=== PATIENT | male | born 1960 | race Caucasian/White ===

== ENCOUNTER 2025-03-15 11:29 | Inpatient (IN) | payer OTHER ==
[~2025-03-15] VITALS: Ht 187.9 cm; Wt 154.2 kg
[2025-03-15] VITALS (13 sets, daily range): BP systolic 85–172; BP diastolic 32–86
[~2025-03-15 11:29] MED LIST: CLARITIN10 MG PO; HYDROCODONE-AC1 EAC2 PO; LEVOTHYROXINE25 MCG PO; LIPITOR40 MG PO; OMEGA 3 1,0001 EACH PO; VITAL-D RX TAB1 EACH PO; VITAMIN C1000 M5 PO; VITAMIN D31250 MCG PO
[2025-03-15 11:53] LABS: ABG BASE EXCESS 10.3 mmol/L (-2.0-3.0); ARTERIAL BLOOD GAS PH 7.152 (7.350-7.450); ARTERIAL BLOOD GAS PO2 39.6 mmHg (83.0-108.0)
[2025-03-15 11:53] LABS: HEMATOCRIT 36.9 % (42.0-52.0); MEAN CELL VOLUME 109.5 fl (80.0-94.0); MEAN CORPUSCULAR HGB 33.8 pg (27.0-31.0); MEAN CORPUSCULAR HGB CONC 30.9 g/dl (33.0-37.0); MEAN PLATELET VOLUME 10.4 fl (9.6-12.3); PLATELET COUNT AUTOMATED 135 10*3/uL (130-400); RED BLOOD COUNT 3.37 10*6/uL (4.50-5.90); RED CELL DISTRI WIDTH 13.7 % (0-14.5); WHITE BLOOD COUNT 6.2 10*3/uL (4.8-10.8)
[2025-03-15 12:11] LABS: ALKALINE PHOSPHATASE 44 U/L (46-116); BUN 15 mg/dl (9-23); CHLORIDE 96 mmol/L (98-107); POTASSIUM 3.8 mmol/L (3.4-5.1); SGPT/ALT 29 U/L (5-49); TOTAL PROTEIN 6.2 gm/dL (6.0-8.0)
[2025-03-15 12:16] LABS: ACT PARTIAL THROMBO TIME 32.5 SECONDS (20.0-32.1)
[2025-03-15] MEDS ORDERED: Piperacillin Sodium/Tazobact 50 ML IV ONE (12:25)
[2025-03-15] MEDS ORDERED: LACTULOSE 20 GM/30 ML UDC R ONE (12:25)
[2025-03-15] MEDS ORDERED: Vancomycin Hydrochloride 250 ML IV ONE (12:25)
[2025-03-15 12:28] LABS: ETHYL ALCOHOL < 3.0 mg/dl (<3)
[2025-03-15 12:31] LABS: MANUAL DIFF REFLEX YES
[2025-03-15 12:38] LABS: BILIRUBIN Negative (Negative); BLOOD Negative (Negative); CLARITY Clear (Clear); COLOR Yellow (Yellow); GLUCOSE Negative (Negative); KETONE Negative (Negative); LEUKO ESTERASE Negative (Negative); NITRITE Negative (Negative); PH 5.5 (4.5-8.0)
[2025-03-15 12:39] LABS: PLATELET SUFFICIENCY NORMAL (NORMAL); POLYCHROMASIA SLIGHT; TOTAL CELLS COUNTED 100 #CELLS
[2025-03-15 12:57] LABS: MUCOUS 1+; WBC 0-2 wbc/hpf (0-5)
[2025-03-15 13:02] LABS: URINE AMPHETAMINES Negative (1000ng/ml); URINE BARBITURATES Negative (200ng/ml); URINE BENZODIAZEPINES Negative (200ng/ml); URINE CANNABINOIDS (THC) Negative (50ng/ml); URINE COCAINE Negative (300ng/ml); URINE METHADONE Negative (300ng/ml); URINE OPIATES Negative (300ng/ml); URINE PHENCYCLIDINE Negative (25ng/ml)
[2025-03-15 13:10] LABS: FREE T4 0.16 ng/dl (0.89-1.76)
[2025-03-15 13:46] LABS: ABG O2 SATURATION 98.1 % (94.0-98.0); ARTERIAL BLOOD GAS PO2 147.3 mmHg (83.0-108.0)
[2025-03-15 13:50] LABS: ABG BASE EXCESS 10.4 mmol/L (-2.0-3.0); ARTERIAL BLOOD GAS PH 7.106 (7.350-7.450)
[2025-03-15] MEDS ORDERED: PROPOFOL 50 ML IV SCH (13:55)
[2025-03-15] MEDS ORDERED: ETOMIDATE 20 MG/10 ML VIAL IV ONE (13:55)
[2025-03-15] MEDS ORDERED: ROCURONIUM BROMIDE 50 MG/5 ML SYRINGE IV ONE (14:05)
[2025-03-15] MEDS ORDERED: LACTULOSE 20 GM/30 ML UDC PO ONE (14:15)
[2025-03-15] MEDS ORDERED: FUROSEMIDE 40 MG/4 ML VIAL IV ONE (14:20)
[2025-03-15] MEDS ORDERED: PROPOFOL 100 ML IV ONE (14:35)
[2025-03-15] MEDS ORDERED: SODIUM CHLORIDE 0.9% 1,000 ML IV ONE (14:40)
[2025-03-15] MEDS ORDERED: Albuterol Sulfate 2.5 MG/3 ML VIAL NEB SCH (15:09)
[2025-03-15] MEDS ORDERED: Midazolam Hydrochloride 5 MG/5 ML VIAL IV PRN (15:10)
[2025-03-15] MEDS ORDERED: BISACODYL 10 MG SUPP R PRN (15:20)
[2025-03-15] MEDS ORDERED: ACETAMINOPHEN 325 MG TAB PO PRN (15:20)
[2025-03-15] MEDS ORDERED: BISACODYL 5 MG TAB PO PRN (15:20)
[2025-03-15] MEDS ORDERED: Magnesium Hydroxide 30 ML UDC PO PRN (15:20)
[2025-03-15] MEDS ORDERED: ACETAMINOPHEN 650 MG SUPP R PRN (15:20)
[2025-03-15] MEDS ORDERED: MORPHINE Sulfate 2 MG/ML SYR IV PRN (15:20)
[2025-03-15] MEDS ORDERED: Acetaminophen/Hydrocodone 5 MG/325 MG TABLET PO PRN (15:20)
[2025-03-15] MEDS ORDERED: Enoxaparin Sodium 40 MG/0.4 ML SYR SC ONE (15:35)
[2025-03-15] MEDS ORDERED: Doxycycline Hyclate 100 MG in SODIUM CHLORIDE 0.9% 250 ML IV SCH (16:00)
[2025-03-15 16:53] LABS: ARTERIAL BLOOD GAS PH 7.499 (7.350-7.450); ARTERIAL BLOOD GAS PO2 62.6 mmHg (83.0-108.0)
[2025-03-15 16:54] LABS: ABG BASE EXCESS 11.3 mmol/L (-2.0-3.0)
[2025-03-15] MEDS ORDERED: hydrALAZINE hydrochloride 20 MG/ML VIAL IV PRN (17:25)
[2025-03-15] MEDS ORDERED: Piperacillin Sodium/Tazobact 50 ML IV SCH (18:00)
[2025-03-16 04:00] VITALS: BP 115/60
[2025-03-16 05:12] LABS: ALKALINE PHOSPHATASE 37 U/L (46-116); BUN 17 mg/dl (9-23); CHLORIDE 98 mmol/L (98-107); CHOLESTEROL 125 mg/dL (<200); LDL CHOLESTEROL 64 mg/dL (9-159); POTASSIUM 3.7 mmol/L (3.4-5.1); SGPT/ALT 23 U/L (5-49); TOTAL PROTEIN 5.4 gm/dL (6.0-8.0); TRIGLYCERIDES 104 mg/dl (<150)
[2025-03-16 05:25] LABS: VITAMIN D, 25-HYDROXY 23.1 ng/mL (30-100)
[2025-03-16] MEDS ORDERED: Levothyroxine Sodium 100 MCG VIAL IV SCH (06:00)
[2025-03-16] MEDS ORDERED: Pantoprazole Sodium 40 MG VIAL IV SCH (06:00)
[2025-03-16 06:11] LABS: BASO % 0.2 % (0.0-1.0); EOS # 0.1 10*3/uL (0.0-0.4); EOS % 2.7 % (1.0-4.0); HEMATOCRIT 30.2 % (42.0-52.0); MEAN CORPUSCULAR HGB 33.7 pg (27.0-31.0); MEAN CORPUSCULAR HGB CONC 31.8 g/dl (33.0-37.0); MEAN PLATELET VOLUME 11.3 fl (9.6-12.3); MONO # 0.6 10*3/uL (0.1-1.0); MONO % 12.7 % (3.0-9.0); NEUT # 3.5 10*3/uL (2.3-7.9); NEUT % 73.2 % (47.0-73.0); PLATELET COUNT AUTOMATED 128 10*3/uL (130-400); RED BLOOD COUNT 2.85 10*6/uL (4.50-5.90); RED CELL DISTRI WIDTH 13.7 % (0-14.5); WHITE BLOOD COUNT 4.7 10*3/uL (4.8-10.8)
[2025-03-16 07:00] LABS: POLYCHROMASIA SLIGHT; TOTAL CELLS COUNTED 100 #CELLS
[2025-03-16 07:01] LABS: PLATELET SUFFICIENCY LOW (NORMAL)
[2025-03-16 07:51] LABS: ABG O2 SATURATION 95.1 % (94.0-98.0); ARTERIAL BLOOD GAS PH 7.472 (7.350-7.450); ARTERIAL BLOOD GAS PO2 72.1 mmHg (83.0-108.0)
[2025-03-16 07:57] LABS: ABG BASE EXCESS 12.3 mmol/L (-2.0-3.0)
[2025-03-16 08:00] VITALS: BP 109/54
[2025-03-16] MEDS ORDERED: ROCURONIUM BROMIDE 100 MG/10 ML VIAL IV ONE (08:41)
[2025-03-16] MEDS ORDERED: ETOMIDATE 20 MG/10 ML VIAL IV ONE (08:41)
[2025-03-16] MEDS ORDERED: Enoxaparin Sodium 40 MG/0.4 ML SYR SC SCH (10:00)
[2025-03-16] MEDS ORDERED: Cholecalciferol 5,000 IU CAP (125 MCG) PO SCH (10:00)
[2025-03-16] MEDS ORDERED: ASCORBIC ACID 500 MG TAB PO SCH (10:00)
[2025-03-16] MEDS ORDERED: FUROSEMIDE 40 MG/4 ML VIAL IV ONE (11:05)
[2025-03-16 12:00] VITALS: BP 117/57
[2025-03-16] MEDS ORDERED: fentaNYL CITRATE 1,000 MCG in SODIUM CHLORIDE 0.9% 230 ML IV SCH (14:45)
[2025-03-16 16:00] VITALS: BP 111/44
[2025-03-16] MEDS ORDERED: AMMONIUM LACTATE 12% LOTION T SCH (18:00)
[2025-03-16 20:00] VITALS: BP 119/50
[2025-03-17] VITALS: BP 92/50
[2025-03-17 04:00] VITALS: BP 111/57
[2025-03-17 05:42] LABS: FREE T4 0.25 ng/dl (0.89-1.76)
[2025-03-17] MEDS ORDERED: fentaNYL CITRATE 100 MCG/2 ML VIAL ONE (05:58)
[2025-03-17 07:23] LABS: ARTERIAL BLOOD GAS PH 7.415 (7.350-7.450); ARTERIAL BLOOD GAS PO2 76.1 mmHg (83.0-108.0)
[2025-03-17 07:25] LABS: BASO % 0.5 % (0.0-1.0); EOS # 0.1 10*3/uL (0.0-0.4); EOS % 3.5 % (1.0-4.0); HEMATOCRIT 29.6 % (42.0-52.0); MEAN CELL VOLUME 105.3 fl (80.0-94.0); MEAN CORPUSCULAR HGB 33.5 pg (27.0-31.0); MEAN CORPUSCULAR HGB CONC 31.8 g/dl (33.0-37.0); MONO # 0.4 10*3/uL (0.1-1.0); MONO % 9.7 % (3.0-9.0); NEUT # 2.5 10*3/uL (2.3-7.9); NEUT % 67.9 % (47.0-73.0); PLATELET COUNT AUTOMATED 130 10*3/uL (130-400); RED BLOOD COUNT 2.81 10*6/uL (4.50-5.90); RED CELL DISTRI WIDTH 14.2 % (0-14.5); WHITE BLOOD COUNT 3.7 10*3/uL (4.8-10.8)
[2025-03-17 07:25] LABS: ABG BASE EXCESS 10.7 mmol/L (-2.0-3.0)
[2025-03-17 07:41] LABS: POTASSIUM 3.5 mmol/L (3.4-5.1); TOTAL PROTEIN 5.7 gm/dL (6.0-8.0)
[2025-03-17 08:00] VITALS: BP 113/56
[2025-03-17] MEDS ORDERED: SODIUM CHLORIDE 0.9% 100 ML BAG IV ONE (09:34)
[2025-03-17] MEDS ORDERED: SODIUM CHLORIDE 0.9% 250 ML BAG IV ONE (09:34)
[2025-03-17] MEDS ORDERED: FUROSEMIDE 40 MG/4 ML VIAL IV SCH (10:00)
[2025-03-17] MEDS ORDERED: ASPIRIN ENTERIC COATED 81 MG TAB PO SCH (10:00)
[2025-03-17 12:00] VITALS: BP 114/64
[2025-03-17 12:40] LABS: ABG O2 SATURATION 92.1 % (94.0-98.0); ARTERIAL BLOOD GAS PH 7.44 (7.350-7.450); ARTERIAL BLOOD GAS PO2 63.9 mmHg (83.0-108.0)
[2025-03-17 12:48] LABS: ABG BASE EXCESS 11.6 mmol/L (-2.0-3.0)
[2025-03-17 16:00] VITALS: BP 111/58; BP 127/56; BP 127/58
[2025-03-17 20:00] VITALS: BP 129/58
[2025-03-18] VITALS (12 sets, daily range): BP systolic 106–140; BP diastolic 54–82
[2025-03-18] MEDS ORDERED: fentaNYL CITRATE 1,000 MCG/20 ML VIAL IV ONE (03:25)
[2025-03-18 05:52] LABS: POTASSIUM 3.7 mmol/L (3.4-5.1); TOTAL PROTEIN 5.5 gm/dL (6.0-8.0)
[2025-03-18 06:16] LABS: BASO % 0.9 % (0.0-1.0); EOS # 0.1 10*3/uL (0.0-0.4); EOS % 4.4 % (1.0-4.0); HEMATOCRIT 26.8 % (42.0-52.0); MEAN CELL VOLUME 105.1 fl (80.0-94.0); MEAN CORPUSCULAR HGB 33.7 pg (27.0-31.0); MEAN CORPUSCULAR HGB CONC 32.1 g/dl (33.0-37.0); MEAN PLATELET VOLUME 11.4 fl (9.6-12.3); MONO # 0.4 10*3/uL (0.1-1.0); MONO % 13.4 % (3.0-9.0); NEUT # 1.8 10*3/uL (2.3-7.9); NEUT % 54.8 % (47.0-73.0); PLATELET COUNT AUTOMATED 126 10*3/uL (130-400); RED BLOOD COUNT 2.55 10*6/uL (4.50-5.90); RED CELL DISTRI WIDTH 14.2 % (0-14.5); WHITE BLOOD COUNT 3.2 10*3/uL (4.8-10.8)
[2025-03-18 07:23] LABS: ARTERIAL BLOOD GAS PH 7.45 (7.350-7.450); ARTERIAL BLOOD GAS PO2 60.8 mmHg (83.0-108.0)
[2025-03-18 07:24] LABS: ABG BASE EXCESS 8.8 mmol/L (-2.0-3.0)
[2025-03-18] MEDS ORDERED: FUROSEMIDE 40 MG/4 ML VIAL IV SCH (18:00)
[2025-03-19] VITALS (8 sets, daily range): BP systolic 116–162; BP diastolic 56–82
[2025-03-19 06:20] LABS: HEMATOCRIT 30.6 % (42.0-52.0); MEAN CELL VOLUME 105.5 fl (80.0-94.0); MEAN CORPUSCULAR HGB 33.1 pg (27.0-31.0); MEAN CORPUSCULAR HGB CONC 31.4 g/dl (33.0-37.0); MEAN PLATELET VOLUME 11.4 fl (9.6-12.3); PLATELET COUNT AUTOMATED 122 10*3/uL (130-400); RED CELL DISTRI WIDTH 14.1 % (0-14.5); WHITE BLOOD COUNT 2.8 10*3/uL (4.8-10.8)
[2025-03-19 06:31] LABS: MANUAL DIFF REFLEX YES
[2025-03-19 06:32] LABS: ALKALINE PHOSPHATASE 36 U/L (46-116); BUN 14 mg/dl (9-23); CHLORIDE 92 mmol/L (98-107); POTASSIUM 3.8 mmol/L (3.4-5.1); SGPT/ALT 18 U/L (5-49); TOTAL PROTEIN 6.1 gm/dL (6.0-8.0)
[2025-03-19 08:06] LABS: ABG BASE EXCESS 13.1 mmol/L (-2.0-3.0); ABG O2 SATURATION 88.5 % (94.0-98.0); ARTERIAL BLOOD GAS PH 7.449 (7.350-7.450)
[2025-03-19 08:07] LABS: ARTERIAL BLOOD GAS PO2 51.4 mmHg (83.0-108.0)
[2025-03-19 08:16] LABS: BASOPHILS 2 % (0-1); TOTAL CELLS COUNTED 100 #CELLS
[2025-03-19 08:17] LABS: PLATELET SUFFICIENCY LOW (NORMAL)
[2025-03-19 12:33] LABS: ABG BASE EXCESS 15.1 mmol/L (-2.0-3.0); ABG O2 SATURATION 92.3 % (94.0-98.0); ARTERIAL BLOOD GAS PH 7.467 (7.350-7.450); ARTERIAL BLOOD GAS PO2 57.9 mmHg (83.0-108.0)
[2025-03-19 16:15] LABS: ABG O2 SATURATION 96.1 % (94.0-98.0); ARTERIAL BLOOD GAS PH 7.455 (7.350-7.450); ARTERIAL BLOOD GAS PO2 81.2 mmHg (83.0-108.0)
[2025-03-20] VITALS: BP 164/77
[2025-03-20 04:00] VITALS: BP 158/67
[2025-03-20 05:40] LABS: ALKALINE PHOSPHATASE 41 U/L (46-116); BUN 14 mg/dl (9-23); CHLORIDE 90 mmol/L (98-107); FREE T4 0.24 ng/dl (0.89-1.76); POTASSIUM 3.5 mmol/L (3.4-5.1); SGPT/ALT 19 U/L (5-49); TOTAL PROTEIN 6.5 gm/dL (6.0-8.0)
[2025-03-20 05:56] LABS: HEMATOCRIT 33.5 % (42.0-52.0); MEAN CORPUSCULAR HGB 32.9 pg (27.0-31.0); MEAN CORPUSCULAR HGB CONC 32.2 g/dl (33.0-37.0); MEAN PLATELET VOLUME 11.2 fl (9.6-12.3); PLATELET COUNT AUTOMATED 146 10*3/uL (130-400); RED BLOOD COUNT 3.28 10*6/uL (4.50-5.90); RED CELL DISTRI WIDTH 13.7 % (0-14.5); WHITE BLOOD COUNT 3.8 10*3/uL (4.8-10.8)
[2025-03-20] MEDS ORDERED: Levothyroxine Sodium 100 MCG VIAL IV SCH (06:00)
[2025-03-20 06:27] LABS: MEAN CELL VOLUME 102.1 fl (80.0-94.0)
[2025-03-20 06:32] LABS: MANUAL DIFF REFLEX YES
[2025-03-20 06:38] LABS: BASOPHILS 1 % (0-1); TOTAL CELLS COUNTED 100 #CELLS
[2025-03-20 06:39] LABS: PLATELET SUFFICIENCY NORMAL (NORMAL)
[2025-03-20 08:00] VITALS: BP 156/63
[2025-03-20 08:15] LABS: ARTERIAL BLOOD GAS PH 7.489 (7.350-7.450)
[2025-03-20 08:29] LABS: ABG BASE EXCESS 12.5 mmol/L (-2.0-3.0); ARTERIAL BLOOD GAS PO2 27.8 mmHg (83.0-108.0)
[2025-03-20 08:55] LABS: ABG O2 SATURATION 92.6 % (94.0-98.0); ARTERIAL BLOOD GAS PH 7.487 (7.350-7.450); ARTERIAL BLOOD GAS PO2 61.6 mmHg (83.0-108.0)
[2025-03-20 08:56] LABS: ABG BASE EXCESS 14.1 mmol/L (-2.0-3.0)
[2025-03-20 12:00] VITALS: BP 170/78
[2025-03-20 16:00] VITALS: BP 157/66
[2025-03-20 20:00] VITALS: BP 148/70
[2025-03-21] VITALS: BP 144/68
[2025-03-21 04:00] VITALS: BP 129/64
[2025-03-21 05:19] LABS: POTASSIUM 3.5 mmol/L (3.4-5.1)
[2025-03-21] MEDS ORDERED: Levothyroxine Sodium 100 MCG VIAL IV SCH (06:00)
[2025-03-21 06:05] LABS: BASO % 0.8 % (0.0-1.0); EOS # 0.1 10*3/uL (0.0-0.4); EOS % 2.3 % (1.0-4.0); MEAN CELL VOLUME 101.2 fl (80.0-94.0); MEAN CORPUSCULAR HGB 33.4 pg (27.0-31.0); MEAN PLATELET VOLUME 11.3 fl (9.6-12.3); MONO # 0.5 10*3/uL (0.1-1.0); MONO % 10.2 % (3.0-9.0); NEUT # 2.9 10*3/uL (2.3-7.9); NEUT % 61.9 % (47.0-73.0); NUCLEATED RED BLOOD CELL 0.4 % (0.0-0.0); PLATELET COUNT AUTOMATED 148 10*3/uL (130-400); RED BLOOD COUNT 3.26 10*6/uL (4.50-5.90); RED CELL DISTRI WIDTH 13.8 % (0-14.5); WHITE BLOOD COUNT 4.7 10*3/uL (4.8-10.8)
[2025-03-21 08:00] VITALS: BP 153/81
[2025-03-21 12:00] VITALS: BP 149/72
[2025-03-21] MEDS ORDERED: LASIX40 MG PO (13:19)
[2025-03-21] MEDS ORDERED: VIBRA-TAB100 MG PO (13:19)
[2025-03-21] MEDS ORDERED: ASPIRIN ADULT L81 M2 PO (13:19)
[2025-03-21] MEDS ORDERED: LEVOTHYROXINE200 MC2 PO (13:19)
[2025-03-21] MEDS ORDERED: POTASSIUM CHLO20 ME3 PO (13:19)
[2025-03-21] MEDS ORDERED: AMMONIUM LACTA227 GM T (13:19)
[2025-03-21] MEDS ORDERED: Paliperidone 3 MG TER PO ONE (13:30)
[2025-03-22] MEDS ORDERED: FUROSEMIDE 40 MG TAB PO SCH (10:00)
== END 2025-03-21 15:54 | DRG 133 ==
LOC: ED 11:29 → ICCU 14:47 → EDHOLD 14:47 → ICCU 15:17
PROVIDERS: Internal Medicine; Internal Medicine Cardiovascular Disease; Internal Medicine Critical Care Medicine; Student in an Organized Health Care Education/Training Program; ADMIT Family Medicine; ATTEND Family Medicine
PROC: 0BH17EZ Insertion of Endotracheal Airway into Trachea, Via Natural or Artificial Opening (ICD-10-PCS; principal; 2025-03-15)
PROC: 5A1945Z Respiratory Ventilation, 24-96 Consecutive Hours (ICD-10-PCS; 2025-03-15)
PROC: 5A09357 Assistance with Respiratory Ventilation, Less than 24 Consecutive Hours, Continuous Positive Airway Pressure (ICD-10-PCS; 2025-03-15)
PROC: 5A09357 Assistance with Respiratory Ventilation, Less than 24 Consecutive Hours, Continuous Positive Airway Pressure (ICD-10-PCS; 2025-03-19)
PROC: 5A09357 Assistance with Respiratory Ventilation, Less than 24 Consecutive Hours, Continuous Positive Airway Pressure (ICD-10-PCS; 2025-03-20)
DX: J96.21 Acute and chronic respiratory failure with hypoxia (principal); N17.0 Acute kidney failure with tubular necrosis; E03.5 Myxedema coma; J15.69 Pneumonia due to other Gram-negative bacteria; I50.33 Acute on chronic diastolic (congestive) heart failure; M62.82 Rhabdomyolysis; D61.818 Other pancytopenia; E72.20 Disorder of urea cycle metabolism, unspecified; S81.801A Unspecified open wound, right lower leg, initial encounter; R62.7 Adult failure to thrive; L03.115 Cellulitis of right lower limb; J96.22 Acute and chronic respiratory failure with hypercapnia; E66.01 Morbid (severe) obesity due to excess calories; E03.9 Hypothyroidism, unspecified; D72.819 Decreased white blood cell count, unspecified; G47.33 Obstructive sleep apnea (adult) (pediatric); I87.2 Venous insufficiency (chronic) (peripheral); I87.8 Other specified disorders of veins; I89.0 Lymphedema, not elsewhere classified; I73.9 Peripheral vascular disease, unspecified; I11.0 Hypertensive heart disease with heart failure; F23 Brief psychotic disorder; F41.9 Anxiety disorder, unspecified; R94.31 Abnormal electrocardiogram [ECG] [EKG]; E78.00 Pure hypercholesterolemia, unspecified; Z79.899 Other long term (current) drug therapy; Z79.01 Long term (current) use of anticoagulants; Z79.2 Long term (current) use of antibiotics; Z87.891 Personal history of nicotine dependence; X58.XXXA Exposure to other specified factors, initial encounter; Y93.89 Activity, other specified; Y92.89 Other specified places as the place of occurrence of the external cause; Y99.8 Other external cause status

== ENCOUNTER 2025-03-21 15:58 | Inpatient (IN) | payer OTHER ==
[~2025-03-21] VITALS: Ht 182.9 cm; Wt 134.3 kg
[~2025-03-21 15:58] MED LIST changes: +AMMONIUM LACTA227 GM T; +ASPIRIN ADULT L81 M2 PO; +LASIX40 MG PO; +LEVOTHYROXINE200 MC2 PO; +POTASSIUM CHLO20 ME3 PO; +VIBRA-TAB100 MG PO
[2025-03-21 16:12] VITALS: BP 168/70
[2025-03-21] MEDS ORDERED: LORazepam 1 MG TAB PO PRN (16:15)
[2025-03-21] MEDS ORDERED: hydrOXYzine hydrochloride 50 MG/ML VIAL IM PRN (16:15)
[2025-03-21] MEDS ORDERED: ACETAMINOPHEN 325 MG TAB PO PRN (16:20)
[2025-03-21] MEDS ORDERED: Magnesium Hydroxide 30 ML UDC PO PRN (16:20)
[2025-03-21] MEDS ORDERED: Ziprasidone Mesylate 20 MG VIAL IM PRN (16:20)
[2025-03-21] MEDS ORDERED: Water, Sterile 10 ML VIAL IM PRN (16:20)
[2025-03-21] MEDS ORDERED: MG-AL HYDROXIDE/SIMETICONE 30 ML UDC PO PRN (16:20)
[2025-03-21] MEDS ORDERED: Menthol/Zinc Oxide 4 GM THIN T PRN (16:30)
[2025-03-21 20:00] VITALS: BP 146/61
[2025-03-21] MEDS ORDERED: POTASSIUM CHLORIDE 20 MEQ TAB PO SCH (21:00)
[2025-03-21] MEDS ORDERED: FUROSEMIDE 40 MG TAB PO SCH (21:00)
[2025-03-21] MEDS ORDERED: Doxycycline Hyclate 100 MG CAPSULE PO SCH (22:00)
[2025-03-22] MEDS ORDERED: Levothyroxine Sodium 200 MCG TAB PO SCH (06:00)
[2025-03-22 07:23] LABS: CHOLESTEROL 168 mg/dL (<200); LDL CHOLESTEROL 93 mg/dL (9-159); TRIGLYCERIDES 128 mg/dl (<150)
[2025-03-22 07:40] LABS: VALPROIC ACID (DEPAKENE) < 3.0 ug/ml (50-100)
[2025-03-22 08:00] VITALS: BP 136/62
[2025-03-22 08:13] LABS: VITAMIN D, 25-HYDROXY 29.2 ng/mL (30-100)
[2025-03-22] MEDS ORDERED: ATORVASTATIN CALCIUM 40 MG TABLET PO SCH (09:00)
[2025-03-22] MEDS ORDERED: Fish Oil 500 MG CAP PO SCH (09:00)
[2025-03-22] MEDS ORDERED: Cholecalciferol 5,000 IU CAP (125 MCG) PO SCH (09:00)
[2025-03-22] MEDS ORDERED: Paliperidone 3 MG TER PO SCH (09:00)
[2025-03-22] MEDS ORDERED: ASCORBIC ACID 500 MG TAB PO SCH (09:00)
[2025-03-22] MEDS ORDERED: ASPIRIN ENTERIC COATED 81 MG TAB PO SCH (10:00)
[2025-03-22] MEDS ORDERED: CARBAMIDE PEROXIDE OTIC 15 ML BOTTLE OT SCH (10:50)
[2025-03-22 20:00] VITALS: BP 167/71
[2025-03-22] MEDS ORDERED: LORazepam 0.5 MG TAB PO SCH (21:00)
[2025-03-22 21:09] VITALS: BP 144/60
[2025-03-23 08:22] VITALS: BP 146/64
[2025-03-23 20:00] VITALS: BP 172/68
[2025-03-23 20:22] VITALS: BP 175/70
[2025-03-23] MEDS ORDERED: cloNIDine Hydrochloride 0.1 MG TAB PO ONE (20:25)
[2025-03-23 22:17] VITALS: BP 140/78
[2025-03-24 08:00] VITALS: BP 140/59
[2025-03-24 20:00] VITALS: BP 143/59
[2025-03-24] MEDS ORDERED: DULoxetine Hydrochloride 30 MG CAP PO SCH (21:00)
[2025-03-25 08:00] VITALS: BP 140/66
[2025-03-25] MEDS ORDERED: DULOXETINE HCL30 MG PO (08:32)
[2025-03-25] MEDS ORDERED: LORAZEPAM0.5 M1 PO (08:32)
== END 2025-03-25 13:50 | disposition home or self-care (01) | DRG 885 ==
LOC: 3N 15:58
PROVIDERS: ADMIT Psychiatry & Neurology Psychiatry; ATTEND Psychiatry & Neurology Psychiatry
PROC: GZHZZZZ Group Psychotherapy (ICD-10-PCS; principal; 2025-03-23)
PROC: GZ51ZZZ Individual Psychotherapy, Behavioral (ICD-10-PCS; 2025-03-23)
DX: F23 Brief psychotic disorder (principal); J18.9 Pneumonia, unspecified organism; F33.9 Major depressive disorder, recurrent, unspecified; I50.30 Unspecified diastolic (congestive) heart failure; F41.9 Anxiety disorder, unspecified; E78.5 Hyperlipidemia, unspecified; E03.9 Hypothyroidism, unspecified; E66.01 Morbid (severe) obesity due to excess calories; I87.2 Venous insufficiency (chronic) (peripheral); H91.93 Unspecified hearing loss, bilateral; M19.90 Unspecified osteoarthritis, unspecified site; I73.9 Peripheral vascular disease, unspecified; I89.0 Lymphedema, not elsewhere classified; X58.XXXD Exposure to other specified factors, subsequent encounter; S81.801D Unspecified open wound, right lower leg, subsequent encounter; Z87.891 Personal history of nicotine dependence; Z79.82 Long term (current) use of aspirin; Z79.899 Other long term (current) drug therapy